=== PATIENT | female | born 1985 | race Caucasian/White ===

== ENCOUNTER 2018-01-20 16:24 | Emergency (ER) | payer OTHER ==
[~2018-01-20] VITALS: Ht 160 cm; Wt 127.0 kg
[2018-01-20] MEDS ORDERED: SPRINTEC1 EACH PO (16:33)
[2018-01-20] MEDS ORDERED: CLEOCIN HCL150 MG PO (17:16)
[2018-01-20 17:42] VITALS: BP 156/107
== END 2018-01-20 17:42 | disposition home or self-care (01) ==
LOC: M.ERS 16:24
DX: L03.311 Cellulitis of abdominal wall (principal); Z88.0 Allergy status to penicillin; Z88.2 Allergy status to sulfonamides

== ENCOUNTER 2018-01-22 17:23 | Inpatient (IN) | payer OTHER ==
[~2018-01-22] VITALS: Ht 160 cm; Wt 133.4 kg
[~2018-01-22 17:23] MED LIST: CLEOCIN HCL150 MG PO; SPRINTEC1 EACH PO
[2018-01-22 17:31] VITALS: BP 146/78
[2018-01-22 18:09] LABS: ABSOLUTE BASOPHILS 0.1 thou/uL (0.0-0.2); ABSOLUTE EOSINOPHILS 0.1 thou/uL (0.0-0.7); ABSOLUTE LYMPHOCYTES 1.6 thou/uL (0.8-5.3); ABSOLUTE MONOCYTES 0.7 thou/uL (0.0-1.2); BASOPHILS 0.7 %; EOSINOPHILS 0.7 %; HEMATOCRIT 39.9 % (37.0-47.0); HEMOGLOBIN 13.4 gm/dL (12.0-15.0); LYMPHOCYTES 16.9 %; MCH 28.3 pg (26.0-34.0); MCHC 33.6 g/dL (28.0-37.0); MCV 84.3 fL (80.0-100.0); MONOCYTES 7.2 %; MPV 9.3 fl. (7.2-11.1); NUCLEATED RBCS 0 /100WBC; PLATELET COUNT* 242 thou/uL (150-400); POLYS 74.5 %; RBC 4.73 mil/uL (4.20-5.00); RDW-CV 13.7 % (10.5-14.5); WBC 9.4 thou/uL (4.0-11.0)
[2018-01-22 18:17] LABS: CALCIUM 8.6 mg/dL (8.5-10.1); CREATININE 0.8 mg/dL (0.6-1.3); POTASSIUM 3.5 mmol/L (3.5-5.1)
[2018-01-22 18:26] LABS: ALBUMIN 3.2 g/dL (3.4-5.0); TOTAL BILIRUBIN 0.2 mg/dL (<0.1-1.0); TOTAL PROTEIN 8.1 g/dL (6.4-8.2)
[2018-01-22 20:15] VITALS: BP 140/94
[2018-01-22 20:25] VITALS: BP 148/78
[2018-01-22 22:14] LABS: AMP/METHAMP POSITIVE (Negative); BARBITURATES Negative (Negative); BENZODIAZEPINES Negative (Negative); COCAINE Negative (Negative); METHADONE Negative (Negative); OPIATES Negative (Negative); PCP Negative (Negative); THC Negative (Negative)
[2018-01-23 04:25] LABS: ABSOLUTE EOSINOPHILS 0.1 thou/uL (0.0-0.7); ABSOLUTE LYMPHOCYTES 1.9 thou/uL (0.8-5.3); ABSOLUTE MONOCYTES 0.5 thou/uL (0.0-1.2); ABSOLUTE NEUTROPHILS 3.9 thou/uL (1.6-8.1); BASOPHILS 0.7 %; LYMPHOCYTES 29.5 %; MCH 28.1 pg (26.0-34.0); MCHC 33.4 g/dL (28.0-37.0); MCV 84.1 fL (80.0-100.0); MONOCYTES 8.3 %; MPV 9.1 fl. (7.2-11.1); NUCLEATED RBCS 0 /100WBC; PLATELET COUNT* 190 thou/uL (150-400); POLYS 59.5 %; RBC 4.28 mil/uL (4.20-5.00); RDW-CV 14.2 % (10.5-14.5); WBC 6.6 thou/uL (4.0-11.0)
[2018-01-23 05:00] LABS: CALCIUM 7.6 mg/dL (8.5-10.1); CREATININE 0.7 mg/dL (0.6-1.3); POTASSIUM 3.3 mmol/L (3.5-5.1)
[2018-01-23 08:40] VITALS: BP 143/71
[2018-01-23 16:00] VITALS: BP 136/78
[2018-01-23 19:45] VITALS: BP 121/78
[2018-01-24 04:36] LABS: ABSOLUTE EOSINOPHILS 0.2 thou/uL (0.0-0.7); ABSOLUTE LYMPHOCYTES 1.7 thou/uL (0.8-5.3); ABSOLUTE MONOCYTES 0.4 thou/uL (0.0-1.2); ABSOLUTE NEUTROPHILS 3.5 thou/uL (1.6-8.1); BASOPHILS 0.6 %; EOSINOPHILS 2.9 %; HEMATOCRIT 36.1 % (37.0-47.0); HEMOGLOBIN 12.1 gm/dL (12.0-15.0); LYMPHOCYTES 29.6 %; MCH 28.2 pg (26.0-34.0); MCHC 33.4 g/dL (28.0-37.0); MCV 84.4 fL (80.0-100.0); MONOCYTES 7.6 %; MPV 9.7 fl. (7.2-11.1); NUCLEATED RBCS 0 /100WBC; PLATELET COUNT* 187 thou/uL (150-400); POLYS 59.3 %; RBC 4.28 mil/uL (4.20-5.00); RDW-CV 13.6 % (10.5-14.5); WBC 5.8 thou/uL (4.0-11.0)
[2018-01-24 04:47] LABS: ALBUMIN 2.6 g/dL (3.4-5.0); CALCIUM 7.8 mg/dL (8.5-10.1); CREATININE 0.6 mg/dL (0.6-1.3); POTASSIUM 3.8 mmol/L (3.5-5.1); TOTAL BILIRUBIN 0.2 mg/dL (<0.1-1.0); TOTAL PROTEIN 6.3 g/dL (6.4-8.2)
[2018-01-24 07:00] VITALS: BP 121/72
--- NOTE | 2018-01-24 07:57 | CON ---
[address] [address] CONSULTATION Name: JUNIE SALOMON Room: [address] M.R.#: [id number] Admission: 01/22/18 Attend Phys: Tato Spaulding MD Discharge: Date of : 85 Report #: [id number] THIS REPORT FOR: //name// CC: Tato Spaulding [facility] physician/PCP DATE OF SERVICE: 01/23/2018 INFECTIOUS DISEASE CONSULTATION ATTENDING PHYSICIAN: Tato Spaulding M.D. REASON FOR EVALUATION: Abdominal skin and soft tissue infection with bullous cellulitis. HISTORY OF PRESENT ILLNESS: Chart reviewed, patient examined. The patient is a 32-year-old woman, without significant medical history, although she is obese, presented with history of progressive periumbilical lesions. She suspects may have been exposed to arthropod bite of some sort. Initially, showed a localized area, perhaps the size of a dime that was somewhat red, slightly raised, although is not particularly symptomatic; however, over the course of the last 3-4 days prior to admission, had developed more pain associated with it. It is cellulitic in character, extended several centimeters and developed a bullous lesion. She did have associated nausea and low grade temperature elevations. She is currently better. She was treated with clindamycin outpatient, felt to have failed that therapy, given vancomycin here. Denies any pulmonary or gastrointestinal related complaints. Had lost her appetite; however, that has improved actually. ALLERGIES: PENICILLIN AND SULFA. CURRENT MEDICATIONS: Include as needed hydrocodone, pantoprazole, vancomycin, p.r.n. ondansetron, enoxaparin. PAST MEDICAL HISTORY: History of headache, previous . SOCIAL HISTORY: Nonsmoker. Occasional ethanol. FAMILY HISTORY: Noncontributory. REVIEW OF SYSTEMS: As above. PHYSICAL EXAMINATION: GENERAL: She is pleasant, alert, cooperative. She is in mild to moderate distress. VITAL SIGNS: Temperature 97.7, pulse 94, respirations 16, [place] [id number] CONSULTATION Name: JT SALOMONJULITO Fuentes Room: [address]#: [id number] Admission: 01/22/18 Attend Phys: Tato Spaulding MD Discharge: Date of : 85 Report #: [id number] 143/71. SKIN: Warm, dry, no rashes. HEENT: Unremarkable. NECK: Supple. LUNGS: Clear to auscultation. HEART: Regular. I do not appreciate any murmur. ABDOMEN: Obese. There is an area in the right periumbilical area that has got moderate degree of inflammation. Does have a denuded area superficial ulceration that is quite tender. There is no induration. There is no significant purulence, no fluctuance. GENITOURINARY: Deferred. RECTAL: Deferred. LABORATORY DATA: Blood cultures sterile thus far. Initial CBC: White count 9.4, H and H 13.4 and 39.9, platelets of 342. Electrolytes: Sodium 138, potassium 3.5, chloride 104, bicarbonate is 27, BUN and creatinine 6 and 0.8. AST of 39, ALT of 43. Albumin of 3.2, total protein of 8.1. Lactic acid initially 1.3. ASSESSMENT: Abdominal wall skin and soft tissue infection with bullous cellulitis. Continue vancomycin. At this point, she is not overtly toxic. We will await the pending results of blood cultures; however, would anticipate transition to oral antibiotics in the next 24-48 hours. Continue wound care as prescribed. <ELECTRONICALLY SIGNED> By: Bob Ruff MD 01/24/18 [id number] 1901Jotyler Ruff MD /nt
[2018-01-24] MEDS ORDERED: MINOCYCLINE HC100 M2 PO (12:44)
[2018-01-24 12:45] VITALS: BP 121/72
== END 2018-01-24 14:03 | disposition home or self-care (01) | DRG 603 ==
LOC: M.ERS 17:23 → M.3W 18:01 → M.TBA-ER 18:01 → M.3W 21:19
PROVIDERS: Nurse Practitioner Family; ADMIT Internal Medicine
DX: L03.311 Cellulitis of abdominal wall (principal); Z68.43 Body mass index [BMI] 50.0-59.9, adult; E66.9 Obesity, unspecified; Z88.0 Allergy status to penicillin; Z88.2 Allergy status to sulfonamides; Z98.891 History of uterine scar from previous surgery